=== PATIENT | female | born 1975 | race American Indian/Alaskan Native ===

== ENCOUNTER 2018-08-03 11:33 | Emergency (ER) | payer OTHER ==
--- NOTE | 2018-08-03 12:12 | Emergency Department Report ---
- General Chief Complaint: Upper Respiratory Infection Stated Complaint: SINUS Time Seen by Provider: 08/03/18 11:57 Source: patient Mode of arrival: Ambulatory Limitations: No Limitations - History of Present Illness Initial Comments: 43-year-old female with a past medical history of a heart murmur presents to the hospital with complaints of URI symptoms 5 days. Patient having progressively worsening sinus pressure and pain, cough productive of green sputum, and sore throat. No fever, nausea, vomiting, or diarrhea reported. Patient also denies chest pain or shortness of breath. This morning patient noticed that her right maxillary part of her face was a little swollen and tender radiating. PMD: None - Related Data Previous Rx's Medication Instructions Recorded Last Taken Type Ibuprofen [Motrin 800 MG tab] 800 mg PO Q8HR PRN #12 tablet 06/05/18 Unknown Rx methOCARBAMOL [Robaxin TAB] 500 mg PO TID #9 tablet 06/05/18 Unknown Rx Azithromycin [Zithromax Z-NATHAN] 1 dose PO DAILY 5 Days tab 08/03/18 Unknown Rx Ibuprofen [Motrin] 800 mg PO Q8HR PRN #30 tablet 08/03/18 Unknown Rx Pseudoephedrine HCl [Sudafed 12 120 mg PO BID PRN #20 tablet.er 08/03/18 Unknown Rx Hour] guaiFENesin/DEXTROMETHORPHAN 1 tab PO BID PRN #20 tab 08/03/18 Unknown Rx [Mucinex DM ER 600-30 mg TAB] Allergies Allergy/AdvReac Type Severity Reaction Status Date / Time Penicillins Allergy Unknown Verified 06/05/18 19:39 ED Review of Systems ROS: Stated complaint: SINUS Other details as noted in HPI Comment: All other systems reviewed and negative ED Past Medical Hx - Past Medical History Previous Medical History?: Yes Additional medical history: recurrent back spasms,heart murmur - Surgical History Past Surgical History?: Yes Additional Surgical History: R fallopion tube removed, ectopic 1993 - Social History Smoking Status: Never Smoker Substance Use Type: None - Medications Home Medications: Home Medications Medication Instructions Recorded Confirmed Last Taken Type Ibuprofen [Motrin 800 MG tab] 800 mg PO Q8HR PRN #12 tablet 06/05/18 Unknown Rx methOCARBAMOL [Robaxin TAB] 500 mg PO TID #9 tablet 06/05/18 Unknown Rx Azithromycin [Zithromax Z-NATHAN] 1 dose PO DAILY 5 Days tab 08/03/18 Unknown Rx Ibuprofen [Motrin] 800 mg PO Q8HR PRN #30 tablet 08/03/18 Unknown Rx Pseudoephedrine HCl [Sudafed 12 120 mg PO BID PRN #20 tablet.er 08/03/18 Unknown Rx Hour] guaiFENesin/DEXTROMETHORPHAN 1 tab PO BID PRN #20 tab 08/03/18 Unknown Rx [Mucinex DM ER 600-30 mg TAB] ED Physical Exam - General Limitations: No Limitations - Other Other exam information: General: No limitations, patient is alert in no acute distress Head exam: Atraumatic, normocephalic Eyes exam: Normal appearance, pupils equal reactive to light ENT: Moist mucous membrane, no exudate. Bilateral maxillary sinus tenderness tenderness. Nasal congestion Neck exam: Normal inspection, full range of motion, no meningismus nontender Respiratory exam: Clear to auscultation bilateral, no wheezes, rales, crackles Cardiovascular: Normal rate and rhythm Abdomen: Soft, nondistended, and nontender, with normal bowel sounds, no rebound, or guarding Extremity: Full range of motion normal inspection no deformity Back: Normal Inspection, full range of motion, no tenderness Neurologic: Alert, oriented x3, cranial nerves intact, no motor or sensory deficit Psychiatric: normal affect, normal mood Skin: Warm, dry, intact ED Course Vital Signs 08/03/18 11:39 Temperature 98.2 F Pulse Rate 94 H Respiratory 20 Rate Blood Pressure 119/84 O2 Sat by Pulse 98 Oximetry ED Medical Decision Making - Medical Decision Making Medications will be prescribed for sinusitis and URI symptoms. Outpatient follow-up encouraged - Differential Diagnosis URI, bronchitis, sinusitis, pneumonia Critical Care Time: No Critical care attestation.: If time is entered above; I have spent that time in minutes in the direct care of this critically ill patient, excluding procedure time. ED Disposition Clinical Impression: Sinusitis, URI (upper respiratory infection) Disposition: TO HOME OR SELFCARE Is pt being admited?: No Does the pt Need Aspirin: No Condition: Stable Instructions: Sinusitis (ED), Upper Respiratory Infection (ED) Additional Instructions: Take the medication as prescribed. Follow up with your doctor or clinic provided. Return if symptoms worsen as indicated by your discharge instructions Prescriptions: Azithromycin [Zithromax Z-NATHAN] 1 dose PO DAILY 5 Days tab guaiFENesin/DEXTROMETHORPHAN [Mucinex DM ER 600-30 mg TAB] 1 tab PO BID PRN #20 tab PRN Reason: Cough Ibuprofen [Motrin] 800 mg PO Q8HR PRN #30 tablet PRN Reason: Pain , Severe (7-10) Pseudoephedrine HCl [Sudafed 12 Hour] 120 mg PO BID PRN #20 tablet.er PRN Reason: Nasal Congestion Referrals: ERIC HERNANDEZ MD [Primary Care Provider] - 3-5 Days [facility] [Provider Group] - 3-5 Days Time of Disposition: 12:16
== END 2018-08-03 12:31 | disposition home or self-care (01) ==
LOC: ED 11:33
CPT/HCPCS: 99282

== ENCOUNTER 2019-01-13 16:48 | Emergency (ER) | payer OTHER ==
--- NOTE | 2019-01-13 17:12 | Emergency Department Report ---
Blank Doc - Documentation Documentation: This is a 43-year-old female that presents with vaginal bleeding. Unsure if p regnant. This initial assessment/diagnostic orders/clinical plan/treatment(s) is/are subject to change based on patient's health status, clinical progression and re- assessment by fellow clinical providers in the ED. Further treatment and workup at subsequent clinical providers discretion. Patient/guardians urged not to elope from the ED as their condition may be serious if not clinically assessed and managed. Initial orders include: 1- Patient sent to [facility] for further evaluation and treatment 2- labs 3- UA
[2019-01-13 17:40] LABS: HCG Qualitative,Urine Negative (Negative)
[2019-01-13 17:45] LABS: Bacteria,Urine 4+ /HPF (Negative); Bilirubin,Urine NEG (Negative); Blood,Urine LG (Negative); Color,Urine Yellow (Yellow); Mucus,Urine FEW /HPF; Protein,Urine <15 mg/dL mg/dL (Negative)
[2019-01-13 18:20] LABS: Basophils # (Auto) 0.1 K/mm3 (0.0-0.1); Basophils % (Auto) 0.6 % (0.0-1.8); Eosinophils # (Auto) 0.1 K/mm3 (0.0-0.4); Eosinophils % (Auto) 0.8 % (0.0-4.3); Hemoglobin 11.8 gm/dl (10.1-14.3); Lymphocytes % (Auto) 28.6 % (13.4-35.0); Mean Corpuscular HGB Conc 32 % (30-34); Mean Corpuscular Volume 81 fl (79-97); Monocytes # (Auto) 0.6 K/mm3 (0.0-0.8); Platelet Count 300 K/mm3 (140-440); Red Blood Count 4.55 M/mm3 (3.65-5.03); Red Cell Distribution Width 15.4 % (13.2-15.2)
--- NOTE | 2019-01-13 19:53 | Emergency Department Report ---
ED Dysuria HPI - HPI Chief Complaint: Vaginal Bleeding Stated Complaint: POSS MISCARRIAGE Time Seen by Provider: 01/13/19 17:10 Duration: 3 Days Severity: Mild Symptoms: Dysuria: No, Suprapubic Pain: No, Flank Pain: No, Fever: No, Hematuria: No, Abdominal Pain: No, Previous UTI's: No Other History: pt 43 yo concerned shes preg due to irregular vag bleed. no pain. ED Review of Systems ROS: Stated complaint: POSS MISCARRIAGE Other details as noted in HPI Comment: All other systems reviewed and negative ED Past Medical Hx - Past Medical History Previous Medical History?: Yes Additional medical history: recurrent back spasms,heart murmur,fibroids - Surgical History Additional Surgical History: R fallopion tube removed, ectopic 1993 - Social History Smoking Status: Never Smoker Substance Use Type: None - Medications Home Medications: Home Medications Medication Instructions Recorded Confirmed Last Taken Type Ibuprofen [Motrin 800 MG tab] 800 mg PO Q8HR PRN #12 tablet 06/05/18 Unknown Rx methOCARBAMOL [Robaxin TAB] 500 mg PO TID #9 tablet 06/05/18 Unknown Rx Azithromycin [Zithromax Z-NATHAN] 1 dose PO DAILY 5 Days tab 08/03/18 Unknown Rx Ibuprofen [Motrin] 800 mg PO Q8HR PRN #30 tablet 08/03/18 Unknown Rx Pseudoephedrine HCl [Sudafed 12 120 mg PO BID PRN #20 tablet.er 08/03/18 Unknown Rx Hour] guaiFENesin/DEXTROMETHORPHAN 1 tab PO BID PRN #20 tab 08/03/18 Unknown Rx [Mucinex DM ER 600-30 mg TAB] Dysuria Exam - Exam General: Vital signs noted. No distress. Alert and acting appropriately. Exam: Yes Moist Mucous Membranes, No CVA Tenderness, No Abdominal Tenderness, No Rigidity or Guarding Labs: Lab Results 01/13/19 01/13/19 01/13/19 Range/Units 17:05 18:05 18:05 WBC 10.5 (4.5-11.0) K/mm3 RBC 4.55 (3.65-5.03) M/mm3 Hgb 11.8 (10.1-14.3) gm/dl Hct 37.0 (30.3-42.9) % MCV 81 (79-97) fl MCH 26 L (28-32) pg MCHC 32 (30-34) % RDW 15.4 H (13.2-15.2) % Plt Count 300 (140-440) K/mm3 Lymph % (Auto) 28.6 (13.4-35.0) % [place] % (Auto) 6.0 (0.0-7.3) % Eos % (Auto) 0.8 (0.0-4.3) % Baso % (Auto) 0.6 (0.0-1.8) % Lymph # 3.0 (1.2-5.4) K/mm3 [place] # 0.6 (0.0-0.8) K/mm3 Eos # 0.1 (0.0-0.4) K/mm3 Baso # 0.1 (0.0-0.1) K/mm3 Seg Neutrophils % 64.0 (40.0-70.0) % Seg Neutrophils # 6.7 (1.8-7.7) K/mm3 HCG, Qual Negative (Negative) Urine Color Yellow (Yellow) Urine Turbidity Clear (Clear) Urine pH 6.0 (5.0-7.0) Ur Specific [place] 1.019 (1.003-1.030) Urine Protein <15 mg/dl (Negative) mg/dL Urine Glucose (UA) Neg (Negative) mg/dL Urine Ketones Neg (Negative) mg/dL Urine Blood Lg (Negative) Urine Nitrite Neg (Negative) Ur Reducing Substances Not Reportable Urine Bilirubin Neg (Negative) Urine Ictotest Not Reportable Urine Urobilinogen 2.0 (<2.0) mg/dL Ur Leukocyte Esterase Neg (Negative) Urine WBC (Auto) 1.0 (0.0-6.0) /HPF Urine RBC (Auto) 2.0 (0.0-6.0) /HPF U Epithel Cells (Auto) 5.0 (0-13.0) /HPF Urine Bacteria (Auto) 4+ (Negative) /HPF Urine Mucus Few /HPF Urine HCG, Qual Negative (Negative) ED Medical Decision Making - Lab Data Result diagrams: 01/13/19 18:05 - Medical Decision Making Labs 01/13/19 01/13/19 01/13/19 17:05 18:05 18:05 WBC 10.5 RBC 4.55 Hgb 11.8 Hct 37.0 MCV 81 MCH 26 L MCHC 32 RDW 15.4 H Plt Count 300 Lymph % (Auto) 28.6 [place] % (Auto) 6.0 Eos % (Auto) 0.8 Baso % (Auto) 0.6 Lymph # 3.0 [place] # 0.6 Eos # 0.1 Baso # 0.1 Seg Neutrophils % 64.0 Seg Neutrophils # 6.7 HCG, Qual Negative Urine Color Yellow Urine Turbidity Clear Urine pH 6.0 Ur Specific [place] 1.019 Urine Protein <15 mg/dl Urine Glucose (UA) Neg Urine Ketones Neg Urine Blood Lg Urine Nitrite Neg Ur Reducing Substances Not Reportable Urine Bilirubin Neg Urine Ictotest Not Reportable Urine Urobilinogen 2.0 Ur Leukocyte Esterase Neg Urine WBC (Auto) 1.0 Urine RBC (Auto) 2.0 U Epithel Cells (Auto) 5.0 Urine Bacteria (Auto) 4+ Urine Mucus Few Urine HCG, Qual Negative preg neg pt educated on perimenopausal bleeding etc she will dc home and follow up with obgyn Critical care attestation.: If time is entered above; I have spent that time in minutes in the direct care of this critically ill patient, excluding procedure time. ED Disposition Clinical Impression: DUB (dysfunctional uterine bleeding) Disposition: DC-01 TO HOME OR SELFCARE Is pt being admited?: No Does the pt Need Aspirin: No Condition: Stable Instructions: Dysfunctional Uterine Bleeding (ED) Additional Instructions: HYDRATE WELL FOLLOW UP WITH OBGYN Referrals: OLIVE QUEZADA MD [Staff Physician] - 3-5 Days Time of Disposition: 19:52
[2019-01-13] MEDS ORDERED: TYLENOL PO ONE (20:23)
[2019-01-13] MEDS ORDERED: TYLENOL ONE (20:28)
== END 2019-01-13 20:28 | disposition home or self-care (01) ==
LOC: ED 16:48
DX: N93.8 Other specified abnormal uterine and vaginal bleeding (principal); Z88.0 Allergy status to penicillin; Z98.890 Other specified postprocedural states; Z79.1 Long term (current) use of non-steroidal anti-inflammatories (NSAID); Z79.899 Other long term (current) drug therapy
CPT/HCPCS: 36415; 81001; 81025; 84703; 85025; 99283

== ENCOUNTER 2019-07-29 13:49 | Emergency (ER) | payer SELFPAY ==
[2019-07-29 14:08] VITALS: BP 124/77
[2019-07-29] MEDS ORDERED: TETRACAINE 0.5% OPHTH SOLN 4ML OD STA (15:44)
[2019-07-29] MEDS ORDERED: FLUORESCEIN 1 MG STRIP OP ONE (15:44)
--- NOTE | 2019-07-29 15:44 | Emergency Department Report ---
Chief Complaint: Eye Problems Stated Complaint: POSS PINK EYE Time Seen by Provider: 07/29/19 15:41 - HPI History of Present Illness: 44 y/o female who states shes not , no glasses no contact lenses, p/w resolved eye discharge no pain, minimal itching no other complaints no abnormalities detected don eye exam visual acuity intact to color perception, finger counting and reading has itching and burning needs miranda lap visual acuity fluorsecin exam no other complaints Vital Signs (72 hours) 07/29/19 14:07 Temperature 97.6 F Pulse Rate 76 Respiratory 16 Rate Blood Pressure 124/77 O2 Sat by Pulse 95 Oximetry - Exam Vital Signs: Vital Signs 07/29/19 14:07 Temperature 97.6 F Pulse Rate 76 Respiratory 16 Rate Blood Pressure 124/77 O2 Sat by Pulse 95 Oximetry MSE screening note: Focused history and physical exam performed. Due to findings the following was ordered: ED Disposition for MSE Condition: Stable
--- NOTE | 2019-07-29 19:26 | Emergency Department Report ---
ED General Adult HPI - General Chief complaint: Eye Problems Stated complaint: POSS PINK EYE Source: patient Mode of arrival: Ambulatory Limitations: No Limitations - History of Present Illness Initial comments: Patient is a 44 year-old female with no past medical history presents to the ED, an acute onset persistent right eye pain, itching with redness and matting and purulent discharge for the last 12 hours. Patient denies vision loss, dizziness, headache, chest pain, shortness of breath, nasal and sinus condition, traumatic injury, fever, chills, cough or sore throat. Patient states that no one else at home is had similar symptoms. MD Complaint: right eye pain -: Sudden, hour(s) (12) Location: eyes (right) Radiation: non-radiation Severity scale (0 -10): 4 Quality: burning, aching Consistency: constant Improves with: none Worsens with: none Associated Symptoms: denies other symptoms. denies: confusion, chest pain, cough, fever/chills, headaches, loss of appetite, malaise, nausea/vomiting, rash, seizure, shortness of breath, syncope, weakness, other Treatments Prior to Arrival: none - Related Data Previous Rx's Medication Instructions Recorded Last Taken Type Ibuprofen [Motrin 800 MG tab] 800 mg PO Q8HR PRN #12 tablet 06/05/18 Unknown Rx methOCARBAMOL [Robaxin TAB] 500 mg PO TID #9 tablet 06/05/18 Unknown Rx Azithromycin [Zithromax Z-NATHAN] 1 dose PO DAILY 5 Days tab 08/03/18 Unknown Rx Ibuprofen [Motrin] 800 mg PO Q8HR PRN #30 tablet 08/03/18 Unknown Rx Pseudoephedrine HCl [Sudafed 12 120 mg PO BID PRN #20 tablet.er 08/03/18 Unknown Rx Hour] guaiFENesin/DEXTROMETHORPHAN 1 tab PO BID PRN #20 tab 08/03/18 Unknown Rx [Mucinex DM ER 600-30 mg TAB] Gentamicin 0.3% Ophth Soln 1 drops OP Q4H #5 ml 07/29/19 Unknown Rx Ibuprofen [Motrin] 600 mg PO Q8H PRN #20 tablet 07/29/19 Unknown Rx diphenhydrAMINE [Benadryl CAP] 25 mg PO Q6HR PRN #24 capsule 07/29/19 Unknown Rx Allergies Allergy/AdvReac Type Severity Reaction Status Date / Time Penicillins Allergy Unknown Verified 06/05/18 19:39 ED Review of Systems ROS: Stated complaint: POSS PINK EYE Other details as noted in HPI Constitutional: denies: chills, fever Eyes: eye pain (right eye ), eye discharge (right eye). denies: vision change ENT: denies: ear pain, throat pain Respiratory: denies: cough, shortness of breath, wheezing Cardiovascular: denies: chest pain, palpitations Endocrine: no symptoms reported Gastrointestinal: denies: abdominal pain, nausea, diarrhea Genitourinary: denies: urgency, dysuria, discharge Musculoskeletal: denies: back pain, joint swelling, arthralgia Skin: denies: rash, lesions Neurological: denies: headache, weakness, paresthesias Psychiatric: denies: anxiety, depression Hematological/Lymphatic: denies: easy bleeding, easy bruising ED Past Medical Hx - Past Medical History Previous Medical History?: Yes Additional medical history: recurrent back spasms,heart murmur,fibroids - Surgical History Past Surgical History?: Yes Additional Surgical History: R fallopion tube removed, ectopic 1993 - Social History Smoking Status: Never Smoker Substance Use Type: None - Medications Home Medications: Home Medications Medication Instructions Recorded Confirmed Last Taken Type Ibuprofen [Motrin 800 MG tab] 800 mg PO Q8HR PRN #12 tablet 06/05/18 Unknown Rx methOCARBAMOL [Robaxin TAB] 500 mg PO TID #9 tablet 06/05/18 Unknown Rx Azithromycin [Zithromax Z-NATHAN] 1 dose PO DAILY 5 Days tab 08/03/18 Unknown Rx Ibuprofen [Motrin] 800 mg PO Q8HR PRN #30 tablet 08/03/18 Unknown Rx Pseudoephedrine HCl [Sudafed 12 120 mg PO BID PRN #20 tablet.er 08/03/18 Unknown Rx Hour] guaiFENesin/DEXTROMETHORPHAN 1 tab PO BID PRN #20 tab 08/03/18 Unknown Rx [Mucinex DM ER 600-30 mg TAB] Gentamicin 0.3% Ophth Soln 1 drops OP Q4H #5 ml 07/29/19 Unknown Rx Ibuprofen [Motrin] 600 mg PO Q8H PRN #20 tablet 07/29/19 Unknown Rx diphenhydrAMINE [Benadryl CAP] 25 mg PO Q6HR PRN #24 capsule 07/29/19 Unknown Rx ED Physical Exam - General Limitations: No Limitations General appearance: alert, in no apparent distress - Head Head exam: Present: atraumatic, normocephalic, normal inspection - Eye Eye exam: Present: normal appearance, PERRL, EOMI, other (erythematous right conjunctiva, mild purulent discharge with matting on the right eye) Pupils: Present: normal accommodation - ENT ENT exam: Present: normal exam, normal orophraynx, mucous membranes moist, TM's normal bilaterally, normal external ear exam - Neck Neck exam: Present: normal inspection, full ROM - Respiratory Respiratory exam: Present: normal lung sounds bilaterally. Absent: respiratory distress, wheezes, rales, rhonchi, chest wall tenderness, decreased breath sounds, prolonged expiratory - Cardiovascular Cardiovascular Exam: Present: regular rate, normal rhythm, normal heart sounds. Absent: systolic murmur, diastolic murmur, rubs, gallop - GI/Abdominal GI/Abdominal exam: Present: soft, normal bowel sounds. Absent: tenderness, guarding, rebound, hyperactive bowel sounds, hypoactive bowel sounds, organomegaly - Extremities Exam Extremities exam: Present: normal inspection, full ROM, normal capillary refill - Back Exam Back exam: Present: normal inspection, full ROM. Absent: tenderness, CVA tenderness (R), CVA tenderness (L), muscle spasm, paraspinal tenderness - Neurological Exam Neurological exam: Present: alert, oriented X3, CN II-XII intact, normal gait, reflexes normal - Psychiatric Psychiatric exam: Present: normal affect, normal mood - Skin Skin exam: Present: warm, dry, intact, normal color. Absent: rash ED Course Vital Signs 07/29/19 14:07 Temperature 97.6 F Pulse Rate 76 Respiratory 16 Rate Blood Pressure 124/77 O2 Sat by Pulse 95 Oximetry ED Medical Decision Making - Medical Decision Making This is a 44-year-old female who presented to the ED with acute onset right eye pain with redness and matting as well as purulent discharge for 12 hours. In the ED, patient is alert and oriented 3 and is not in distress, visual acuity is intact bilaterally, and patient resting comfortably and conversing with family in the ED room. Patient is hemodynamically stable. Patient was discharged home on medications and advised to follow-up with her primary care physician in 5-7 days for reevaluation. Patient was advised also on proper hygiene mechanisms to prevent the spread of this suspected acute conjunctivitis. Patient was advised to return to the ED immediately if symptoms get worse. - Differential Diagnosis Bacterial conjunctivitis; Viral conjunctivitis; allergic conjunctivitis Critical care attestation.: If time is entered above; I have spent that time in minutes in the direct care of this critically ill patient, excluding procedure time. ED Disposition Clinical Impression: Acute conjunctivitis, right eye Qualifiers: Acute conjunctivitis type: unspecified Qualified Code(s): H10.31 - Unspecified acute conjunctivitis, right eye Disposition: DC-01 TO HOME OR SELFCARE Is pt being admited?: No Does the pt Need Aspirin: No Condition: Stable Instructions: Conjunctivitis (ED) Additional Instructions: Apply the medication to the affected eye as advised. Return to the ED immedi ately if symptoms get worse. Otherwise follow-up with your primary care physician in 5-7 days for reevaluation. Prescriptions: diphenhydrAMINE [Benadryl CAP] 25 mg PO Q6HR PRN #24 capsule PRN Reason: Itching Gentamicin 0.3% Ophth Soln 1 drops OP Q4H #5 ml Ibuprofen [Motrin] 600 mg PO Q8H PRN #20 tablet PRN Reason: Pain Referrals: KELECHI BURNHAM MD [Staff Physician] - 3-5 Days Forms: Work/School Release Form(ED) Time of Disposition: 19:28 Print Language: MICRONESIAN
== END 2019-07-29 19:46 | disposition home or self-care (01) ==
LOC: ED 13:49
DX: H10.31 Unspecified acute conjunctivitis, right eye (principal); Z79.899 Other long term (current) drug therapy; Z88.0 Allergy status to penicillin